=== PATIENT | female | born 1945 | race Caucasian/White ===

== ENCOUNTER 2020-10-16 09:04 | Inpatient (IN) | payer MEDICARE ==
[~2020-10-16] VITALS: Ht 167.6 cm; Wt 72.6 kg
--- NOTE | 2020-10-16 09:10 | NUR ---
Pt BIB private ambulance, no records w/pt, reports SOB. Pt of Dr. Garcia, on hospice, DNR/DNI (per Jose).
[2020-10-16] MEDS ORDERED: IV NS 1000 ML 1,000 ML IV ONE (09:15)
[2020-10-16] MEDS ORDERED: PIPERACILLIN SODIUM/TAZOBACTAM 3.375 G in IV DEXTROSE 5% 50 ML IV ONE (09:30)
[2020-10-16] MEDS ORDERED: VANCOMYCIN IV 1,000 MG in IV DEXTROSE 5% 250 ML IV ONE (09:30)
[2020-10-16] MEDS ORDERED: CELE200C PO (09:31)
[2020-10-16] MEDS ORDERED: OXYB-58 PO (09:31)
[2020-10-16] MEDS ORDERED: FAMO20TA8 PO (09:31)
[2020-10-16] MEDS ORDERED: MONT10TA22 PO (09:31)
[2020-10-16] MEDS ORDERED: DULO60CA45 PO (09:31)
[2020-10-16] MEDS ORDERED: LEVO112T5 PO (09:31)
[2020-10-16] MEDS ORDERED: OMEP40CA13 PO (09:31)
[2020-10-16] MEDS ORDERED: BACL10TA PO (09:31)
[2020-10-16] MEDS ORDERED: MEMA10TA PO (09:31)
[2020-10-16 09:42] LABS: *BILIRUBIN,URIN 1+ (NEGATIVE); *BLOOD, URINE 3+ (NEGATIVE); *CLARITY,URINE CLOUDY (CLEAR); *COLOR,URINE YELLOW (YELLOW); *KETONES,URINE TRACE (NEGATIVE); LEUKOCYTE ESTERASE ,URINE 1+ (NEGATIVE); NITRITE, URINE POSITIVE (NEGATIVE); PH,URINE 5.5 (5.0-8.0); UGLUCOSE NEGATIVE (NEGATIVE)
[2020-10-16] MEDS ORDERED: PIPERACILLIN/TAZOBACTAM/D5W 50 ML IV ONE (09:48)
[2020-10-16] MEDS ORDERED: VANCOMYCIN IV 200 ML ONE (09:48)
[2020-10-16 09:53] LABS: CARBON DIOXIDE 12 mmol/L (21-32); CHLORIDE 105 mmol/L (98-107); CREATININE 1.8 mg/dL (0.6-1.3); GLUCOSE 91 mg/dL (74-106); POTASSIUM 3.8 mmol/L (3.5-5.1); UREA NITROGEN, BLOOD 42 mg/dL (7-18)
--- NOTE | 2020-10-16 10:00 | NUR ---
PT Hx: M.S., HTN, GERD, hypothyroid, osteoarthritis. Normally bed bound and A&O4.
[2020-10-16 10:05] LABS: ALKALINE PHOSPHATASE 63 U/L (50-136); ASPARTATE AMINOTRANSFERASE 174 U/L (15-37); BILIRUBIN,TOTAL 1.1 mg/dL (0.2-1.0); CREATINE KINASE, TOTAL 338 U/L (26-192); LACTATE DEHYDROGENASE 495 U/L (81-234); TOTAL PROTEIN, SERUM 7.5 g/dL (6.4-8.2)
[2020-10-16 10:19] LABS: BASOPHILS % (AUTO) 0.1 % (0.0-2.0); EOSINOPHILS % (AUTO) 0.1 % (0.0-7.0); HEMATOCRIT 48.2 % (31.2-41.9); HEMOGLOBIN 15.3 g/dL (10.9-14.3); LYMPHOCYTES # (AUTO) 0.7 K/uL (20.0-40.0); LYMPHOCYTES % (AUTO) 19.9 % (20.5-51.5); MEAN CORPUSCULAR HGB CONC 32 g/dL (32.3-35.6); MEAN CORPUSCULAR VOLUME 94.5 fL (75.5-95.3); MONOCYTES # (AUTO) 0.2 K/uL (2.0-10.0); MONOCYTES % (AUTO) 6.9 % (0.0-11.0); NEUTROPHILS # (AUTO) 2.4 K/uL (1.8-8.9); PLATELET COUNT (AUTO) 358 K/uL (179-408); RED BLOOD CELL COUNT(AUTO) 5.09 MIL/uL (3.63-4.92); WHITE BLOOD COUNT (AUTO) 3.3 K/uL (3.8-11.8)
[2020-10-16] MEDS ORDERED: IV NORMAL SALINE 1000 ML BAG IV ONE (10:30)
--- NOTE | 2020-10-16 10:33 | NUR ---
SON: Reynaldo Espino ... : "Dio" ([phone] Home:
[2020-10-16 10:43] LABS: ALANINE AMINOTRANSFERASE 80 U/L (14-59); FERRITIN 661 ng/mL (8-252)
[2020-10-16 10:45] LABS: ABG BASE EXCESS -16.3 mmol/L; ABG HCO3 9.5 mmol/L; ABG PCO2 23.3 mmHg (35.0-45.0); ABG PH 7.226 (7.350-7.450); ABG PO2 77.3 mmHg (75.0-100.0); ABG SITE RIGHT RADIAL; ABG TOTAL HEMOGLOBIN 13.5 G/dL (12.0-16.0); COHb 1.5 % (0.5-1.5); MetHb 0.1 % (0.0-1.5); O2Hb 91.5 % (94.0-97.0)
[2020-10-16] MEDS ORDERED: DEXAMETHASONE SOD PHOSPHATE 4 MG INJ IV ONE (11:45)
[2020-10-16] MEDS ORDERED: DEXAMETHASONE SOD PHOSPHATE 10 MG INJ ONE (12:00)
--- NOTE | 2020-10-16 12:07 | NUR ---
Pt becoming more alert, eyes tracked, answers basic yes/no questions w/nods, not talking.
--- NOTE | 2020-10-16 12:40 | NUR ---
Tried calling report, nurse unavailable again. WCB in 10 minutes.
[2020-10-16 13:14] LABS: BACTERIA,URINE MANY /HPF (NONE SEEN); SQUAMOUS EPITHELIAL CELL,UR MODERATE /HPF (NONE SEEN)
--- NOTE | 2020-10-16 13:33 | NUR ---
ALYSON Valencia still not able to take report.
--- NOTE | 2020-10-16 14:14 | NUR ---
Gave report to ALYSON Jimenes.
--- NOTE | 2020-10-16 15:30 | NUR ---
RECEIVED REPORT FROM WILL. PATIENT UNRESPONSIVE, UNABLE TO FOLLOW COMMAND, AND RESPONSES TO SOME PAINFUL STIMULI. ON 15L NON-REBREATHER MASK, SATURATION 84-89%. BP 66/17, HR 134. FOLLOW UP WITH MD ABOUT CODE STATUS. SAFETY PRECAUTIONS IN PLACE. WILL CONTINUE TO MONITOR.
[2020-10-16 15:52] VITALS: BP 66/17
[2020-10-16] MEDS ORDERED: MORPHINE SULFATE 2 MG/1 ML DISP.SYRIN IV PRN (16:00)
[2020-10-16] MEDS ORDERED: IV D5/ 0.9% NACL 1,000 ML IV PRN (16:00)
[2020-10-16] MEDS ORDERED: ONDANSETRON 4 MG/2 ML VIAL IV PRN (16:00)
[2020-10-16] MEDS ORDERED: ACETAMINOPHEN 650 MG SUPP.RECT RC PRN (16:00)
[2020-10-16 16:09] VITALS: BP 160/58
[2020-10-16] MEDS ORDERED: PIPERACILLIN/TAZO 2.25 G in IV DEXTROSE 5% 50 ML IV SCH (18:00)
[2020-10-16] MEDS ORDERED: PIPERACILLIN SODIUM/TAZOBACTAM 3.375 G in IV DEXTROSE 5% 50 ML IV SCH (18:00)
--- NOTE | 2020-10-16 18:36 | NUR ---
IV ON RIGHT HAND, INFILTRATED. RESTARTED IV ON RIGHT HAND 22G, FLUSHING AND PATENT. HANKINS CATHETER IN PLACE AND PATENT. PATIENT TEMPERATURE 102.2, RETAKEN ON AXILLARY 101.3. GIVEN TYLENOL SUPPOSITORY, REMOVED BLANKETS. WILL MONITOR.
--- NOTE | 2020-10-16 20:07 | NUR ---
PATIENT AT 1905. PRONOUNCED BY DR RANDLE, NO AUDIBLE HEART AND BREATH SOUNDS. NO PALPABLE PULSES. POSTMORTEM CARE DONE - TOE TAG AND BAG TAG ATTACHED. NOTIFIED [facility] ([id number]). NOTIFIED NEXT OF KIN, JOSE (SON) AND ERNESTO (). 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 Addendum: 10/16/20 at 2012 by JOSE ROBERTS RN Amended: Links added.
--- NOTE | 2020-10-16 20:30 | NUR ---
WHEELED HE BODY TO THE MORGUE. IDENTIFICATION OF THE BODY ATTACHED.
[2020-10-17] MEDS ORDERED: FAMOTIDINE. 20 MG/2 ML VIAL IV SCH (09:00)
[2020-10-17] MEDS ORDERED: VANCOMYCIN IV 750 MG in IV DEXTROSE 5% 250 ML IV SCH (11:00)
== END 2020-10-16 20:48 | disposition expired | DRG 871 ==
LOC: ER 09:04 → EDBD 09:04 → TELE3 14:16
PROVIDERS: ADMIT Internal Medicine; ATTEND Internal Medicine
DX: A41.89 Other specified sepsis (principal); J96.01 Acute respiratory failure with hypoxia; U07.1 COVID-19; N17.0 Acute kidney failure with tubular necrosis; G92 Toxic encephalopathy; E43 Unspecified severe protein-calorie malnutrition; J69.0 Pneumonitis due to inhalation of food and vomit; N39.0 Urinary tract infection, site not specified; D68.69 Other thrombophilia; E03.9 Hypothyroidism, unspecified; G35 Multiple sclerosis; M19.90 Unspecified osteoarthritis, unspecified site; Z66 Do not resuscitate; K21.9 Gastro-esophageal reflux disease without esophagitis; Z51.5 Encounter for palliative care; E86.0 Dehydration; J44.9 Chronic obstructive pulmonary disease, unspecified; R74.01 Elevation of levels of liver transaminase levels; E66.9 Obesity, unspecified; Z68.25 Body mass index [BMI] 25.0-25.9, adult; R32 Unspecified urinary incontinence; I11.0 Hypertensive heart disease with heart failure; I50.9 Heart failure, unspecified
CPT/HCPCS: 36415; 36600; 51702; 70030-TC; 71045; 83605; 83615; 85025; 85730; 86140; 87040; 87086; 93005; A4663; G0378; J1100; J2543; J3370; J7030; J7040; J7042; J7060; U0003